=== PATIENT | male | born 1940 | race Caucasian/White ===

== ENCOUNTER → 2019-08-03 09:40 | Outpatient (CLI) | payer MEDICARE, BC | END | disposition home or self-care (01) | LOC: D.RAD 09:40 | PROVIDERS: ATTEND Internal Medicine Gastroenterology | DX: R63.4 Abnormal weight loss (principal); R19.4 Change in bowel habit ==

== ENCOUNTER → 2019-08-08 08:31 | Outpatient (CLI) | payer MEDICARE, BC | END | disposition home or self-care (01) | LOC: D.RAD 08:31 | PROVIDERS: ATTEND Internal Medicine Gastroenterology | DX: R63.4 Abnormal weight loss (principal); R19.4 Change in bowel habit ==